=== PATIENT | female | born 1955 | race Caucasian/White ===

== ENCOUNTER 2020-03-02 20:22 | Inpatient (IN) ==
[2020-03-02] MEDS ORDERED: Ondansetron ODT 4 MG TAB.RAPDIS SL PRN (22:42)
[2020-03-02] MEDS ORDERED: Naloxone 0.4 MG/ML INJ IVP PRN (22:42)
[2020-03-03 01:03] LABS: Basophils # 0.1 K/mcL (0.0-0.2); Basophils % 0.4 %; Eosinophils % 0.1 %; Hematocrit 40.5 % (35.3-44.9); Hemoglobin 13.2 g/dL (11.5-15.4); Immature Granulocytes % 0.7 % (0-4); Lymphocytes # 2.3 K/mcL (0.6-4.6); Lymphocytes % 13.6 %; Mean Corpuscular HGB Conc 32.6 g/dL (31.6-35.5); Mean Corpuscular Hemoglobin 26.6 pg (28.0-33.3); Mean Corpuscular Volume 81.7 fL (83.0-100.0); Mean Platelet Volume 9.3 fL (9.4-12.4); Monocytes % 11.7 %; Neutrophils # 12.3 K/mcL (1.6-8.9); Platelet Count 338 K/mcL (140-400); Red Blood Count 4.96 M/mcL (3.82-4.97); Red Cell Distribution Width 14.6 % (11.5-14.5); Segmented Neutrophils % 73.5 %; White Blood Count 16.7 K/mcL (4.3-11.1)
[2020-03-03] MEDS ORDERED: D5% in Water 1,000 ML IVC PRN (01:13)
[2020-03-03] MEDS ORDERED: *HR* Dextrose 50 % in Water (Vial) 50 ML VIAL IVP PRN (01:13)
[2020-03-03] MEDS ORDERED: Dextrose Gel 15 GM/37.5 ML TUBE PO PRN ×2 (01:13)
[2020-03-03 01:23] LABS: % Iron Saturation 8 % (15-50); Alanine Aminotransferase 13 Units/L (7-52); Albumin/Globulin Ratio 1.6 (1.1-2.2); Alkaline Phosphatase 82 Units/L (34-104); Aspartate Amino Transferase 22 Units/L (13-39); BUN/Creatinine Ratio 13 (6-26); Bilirubin,Total 0.4 mg/dL (0.3-1.0); Blood Urea Nitrogen 9 mg/dL (8-23); Calcium 9.3 mg/dL (8.6-10.3); Carbon Dioxide 24 mEq/L (23-29); Chloride 95 mEq/L (98-107); Chol/HDL Ratio 2.8 (0-4.9); Cholesterol 160 mg/dL (< 200); Globulin 2.5 g/dL (2.4-3.5); Glucose 231 mg/dL (70-105); HDL Cholesterol 57 mg/dL (40-59); Iron 27 mcg/dL (50-170); LDL Cholesterol,Calculated 74 mg/dL (< 100); Magnesium 1.2 mg/dL (1.6-2.6); Osmolality,Calculated 282 (280-300); Phosphorous 2.1 mg/dL (2.7-4.5); Potassium 3.2 mEq/L (3.5-5.1); Sodium 133 mEq/L (136-145); Total Protein 6.5 g/dL (6.4-8.9); Transferrin 244 mg/dL (203-362); Triglycerides 144 mg/dL (< 150); eGFR For African Americans > 60 (> 60); eGFR For Non-African Americans > 60 (> 60)
[2020-03-03 01:34] LABS: Thyroid Stimulating Hormone 1.376 mcIU/mL (0.340-5.600)
[2020-03-03 01:40] LABS: Ferritin 76 ng/mL (10-120)
[2020-03-03] MEDS ORDERED: *HR* Heparin 5,000 UNIT/ML VIAL IVP PRN ×2 (02:33)
[2020-03-03] MEDS ORDERED: Perflutren Lipid Microsphere 1.3 ML in 0.9 % Sodium Chloride 8.7 ML IVP PRN (02:33)
[2020-03-03] MEDS ORDERED: *HR* Heparin 5,000 UNIT/ML VIAL IVP ONE (02:33)
[2020-03-03 03:04] LABS: Estimated Average Glucose 214 mg/dl; Hemoglobin A1C 9.1 %
[2020-03-03] MEDS: Heparin 25,000UNIT/250ML 1/2NS 25,000 UNIT/250 ML IV.SOLN IVC SCH (03:22)
[2020-03-03] MEDS: Insulin LISPRO 300 UNITS/3 ML VIAL SUBQ SCH ×5 (03:23→20:02)
[2020-03-03] MEDS: cefTRIAXone 1,000 MG in 0.9 % Sodium Chloride Mini Bag 100 ML IVPB SCH (09:42)
[2020-03-03] MEDS: carvediloL 6.25 MG TABLET PO SCH ×2 (10:43→16:07)
[2020-03-03] MEDS ORDERED: tiZANidine 4 MG TABLET PO PRN (12:51)
[2020-03-03] MEDS ORDERED: SUMAtriptan succinate 50 MG TABLET PO PRN (12:51)
[2020-03-03] MEDS: Aspirin 81 MG TAB.CHEW PO SCH (13:15)
[2020-03-03 22:11] LABS: Bacteria,Urine Few per hpf (None-Few); Bilirubin,Urine Negative (Negative); Blood,Urine Trace (Negative); Clarity,Urine Clear (Clear); Color,Urine Light-Yellow (Yellow); Glucose,Urine (UA) 100 mg/dL (Normal); Ketones,Urine 10 mg/dL (Negative); Leukocyte Esterase,Urine Small (Negative); Nitrite,Urine Negative (Negative); Protein,Urine Negative (Neg-Trace); RBC,Urine 0-3 per hpf (0-3); Specific Gravity,Urine 1.011 (1.010-1.025); Squamous Epithelial Cell,Urine Few per hpf (None-Few); Urobilinogen,Urine Normal (Normal); WBC,Urine 0-3 per hpf (0-3)
[2020-03-04] MEDS: traZODone 50 MG TABLET PO SCH ×2 (01:23→22:21)
[2020-03-04 03:09] LABS: Basophils # 0.1 K/mcL (0.0-0.2); Basophils % 0.5 %; Eosinophils # 0.1 K/mcL (0.0-0.6); Eosinophils % 0.6 %; Hematocrit 44.2 % (35.3-44.9); Hemoglobin 14.3 g/dL (11.5-15.4); Immature Granulocytes % 0.5 % (0-4); Lymphocytes # 2.7 K/mcL (0.6-4.6); Lymphocytes % 19.7 %; Mean Corpuscular HGB Conc 32.4 g/dL (31.6-35.5); Mean Corpuscular Hemoglobin 26.5 pg (28.0-33.3); Mean Platelet Volume 9.2 fL (9.4-12.4); Monocytes # 1.4 K/mcL (0.0-1.3); Monocytes % 9.8 %; Neutrophils # 9.5 K/mcL (1.6-8.9); Platelet Count 355 K/mcL (140-400); Red Blood Count 5.39 M/mcL (3.82-4.97); Red Cell Distribution Width 14.4 % (11.5-14.5); Segmented Neutrophils % 68.9 %; White Blood Count 13.8 K/mcL (4.3-11.1)
[2020-03-04] MEDS: Heparin 25,000UNIT/250ML 1/2NS 25,000 UNIT/250 ML IV.SOLN IVC SCH (03:16)
[2020-03-04 03:28] LABS: BUN/Creatinine Ratio 15 (6-26); Blood Urea Nitrogen 7 mg/dL (8-23); Calcium 9.3 mg/dL (8.6-10.3); Carbon Dioxide 26 mEq/L (23-29); Chloride 88 mEq/L (98-107); Glucose 243 mg/dL (70-105); Osmolality,Calculated 274 (280-300); Potassium 3.4 mEq/L (3.5-5.1); Sodium 129 mEq/L (136-145); eGFR For African Americans > 60 (> 60); eGFR For Non-African Americans > 60 (> 60)
[2020-03-04] MEDS: Insulin LISPRO 300 UNITS/3 ML VIAL SUBQ SCH ×4 (07:49→23:19)
[2020-03-04] MEDS: Aspirin 81 MG TAB.CHEW PO SCH (07:50)
[2020-03-04] MEDS: carvediloL 6.25 MG TABLET PO SCH ×2 (07:50→16:41)
[2020-03-04] MEDS: Loratadine 10 MG TABLET PO SCH (07:50)
[2020-03-04] MEDS: Folic Acid 1 MG TABLET PO SCH (07:50)
[2020-03-04] MEDS: Magnesium Oxide 400 MG TABLET PO SCH (07:50)
[2020-03-04] MEDS: Cholecalciferol (D-3) 1,000 UNIT (25MCG) TABLET PO SCH (07:51)
[2020-03-04] MEDS: cefTRIAXone 1,000 MG in 0.9 % Sodium Chloride Mini Bag 100 ML IVPB SCH (07:51)
[2020-03-04] MEDS ORDERED: Furosemide 20 MG TABLET PO SCH (09:00)
[2020-03-04] MEDS: amLODIPine 5 MG TABLET PO SCH (13:18)
[2020-03-04] MEDS: Acetaminophen 325 MG TABLET PO PRN (22:21)
[2020-03-05 00:43] LABS: Basophils # 0.1 K/mcL (0.0-0.2); Basophils % 0.5 %; Eosinophils # 0.2 K/mcL (0.0-0.6); Eosinophils % 1.2 %; Hematocrit 46.2 % (35.3-44.9); Hemoglobin 15.2 g/dL (11.5-15.4); Immature Granulocytes % 0.8 % (0-4); Lymphocytes % 19.9 %; Mean Corpuscular HGB Conc 32.9 g/dL (31.6-35.5); Mean Corpuscular Hemoglobin 26.2 pg (28.0-33.3); Mean Corpuscular Volume 79.7 fL (83.0-100.0); Monocytes # 1.8 K/mcL (0.0-1.3); Monocytes % 11.6 %; Neutrophils # 10.1 K/mcL (1.6-8.9); Platelet Count 393 K/mcL (140-400); Red Cell Distribution Width 14.2 % (11.5-14.5); White Blood Count 15.3 K/mcL (4.3-11.1)
[2020-03-05 01:49] LABS: BUN/Creatinine Ratio 16 (6-26); Blood Urea Nitrogen 9 mg/dL (8-23); Calcium 9.8 mg/dL (8.6-10.3); Carbon Dioxide 28 mEq/L (23-29); Chloride 85 mEq/L (98-107); Glucose 255 mg/dL (70-105); Osmolality,Calculated 265 (280-300); Sodium 124 mEq/L (136-145); eGFR For African Americans > 60 (> 60); eGFR For Non-African Americans > 60 (> 60)
[2020-03-05] MEDS ORDERED: Melatonin 3 MG TABLET PO PRN (04:43)
[2020-03-05] MEDS ORDERED: 0.9 % Sodium Chloride 1,000 ML IVC SCH (04:45)
[2020-03-05] MEDS ORDERED: Potassium Chloride 40 MEQ, Lidocaine 1% 2 ML in 0.9 % Sodium Chloride 500 ML IVPB ONE (04:58)
[2020-03-05] MEDS: Heparin 25,000UNIT/250ML 1/2NS 25,000 UNIT/250 ML IV.SOLN IVC SCH (05:09)
[2020-03-05] MEDS: Cholecalciferol (D-3) 1,000 UNIT (25MCG) TABLET PO SCH (07:45)
[2020-03-05] MEDS: carvediloL 6.25 MG TABLET PO SCH ×2 (07:46→16:58)
[2020-03-05] MEDS: Furosemide 20 MG TABLET PO SCH (07:46)
[2020-03-05] MEDS: Loratadine 10 MG TABLET PO SCH (07:46)
[2020-03-05] MEDS: amLODIPine 5 MG TABLET PO SCH (07:46)
[2020-03-05] MEDS: Folic Acid 1 MG TABLET PO SCH (07:47)
[2020-03-05] MEDS: Magnesium Oxide 400 MG TABLET PO SCH (07:47)
[2020-03-05] MEDS: Aspirin 81 MG TAB.CHEW PO SCH (07:47)
[2020-03-05] MEDS: cefTRIAXone 1,000 MG in 0.9 % Sodium Chloride Mini Bag 100 ML IVPB SCH (07:47)
[2020-03-05] MEDS: Insulin LISPRO 300 UNITS/3 ML VIAL SUBQ SCH ×5 (07:48→20:37)
[2020-03-05] MEDS: traZODone 50 MG TABLET PO SCH (20:23)
[2020-03-05] MEDS: *HR* Heparin 5,000 UNIT/ML VIAL SQ SCH (20:40)
[2020-03-06] MEDS: Acetaminophen 325 MG TABLET PO PRN (05:31)
[2020-03-06] MEDS: *HR* Heparin 5,000 UNIT/ML VIAL SQ SCH (05:32)
[2020-03-06 08:02] LABS: Basophils # 0.1 K/mcL (0.0-0.2); Eosinophils # 0.2 K/mcL (0.0-0.6); Eosinophils % 1.3 %; Hematocrit 50.1 % (35.3-44.9); Hemoglobin 15.3 g/dL (11.5-15.4); Lymphocytes # 2.9 K/mcL (0.6-4.6); Lymphocytes % 21.4 %; Mean Corpuscular HGB Conc 30.5 g/dL (31.6-35.5); Mean Corpuscular Hemoglobin 25.9 pg (28.0-33.3); Mean Corpuscular Volume 84.9 fL (83.0-100.0); Mean Platelet Volume 10.1 fL (9.4-12.4); Monocytes # 1.7 K/mcL (0.0-1.3); Monocytes % 12.5 %; Neutrophils # 8.5 K/mcL (1.6-8.9); Platelet Count 331 K/mcL (140-400); Red Cell Distribution Width 14.6 % (11.5-14.5); Segmented Neutrophils % 62.8 %; White Blood Count 13.5 K/mcL (4.3-11.1)
[2020-03-06 08:52] LABS: BUN/Creatinine Ratio 20 (6-26); Blood Urea Nitrogen 13 mg/dL (8-23); Calcium 9.5 mg/dL (8.6-10.3); Carbon Dioxide 19 mEq/L (23-29); Chloride 83 mEq/L (98-107); Glucose 294 mg/dL (70-105); Osmolality,Calculated 263 (280-300); Potassium 3.8 mEq/L (3.5-5.1); Sodium 121 mEq/L (136-145); eGFR For African Americans > 60 (> 60); eGFR For Non-African Americans > 60 (> 60)
[2020-03-06] MEDS: Insulin LISPRO 300 UNITS/3 ML VIAL SUBQ SCH (09:02)
[2020-03-06] MEDS: Cholecalciferol (D-3) 1,000 UNIT (25MCG) TABLET PO SCH (09:03)
[2020-03-06] MEDS: Aspirin 81 MG TAB.CHEW PO SCH (09:03)
[2020-03-06] MEDS: Magnesium Oxide 400 MG TABLET PO SCH (09:03)
[2020-03-06] MEDS: Furosemide 20 MG TABLET PO SCH (09:03)
[2020-03-06] MEDS: amLODIPine 5 MG TABLET PO SCH (09:03)
[2020-03-06] MEDS: Loratadine 10 MG TABLET PO SCH (09:03)
[2020-03-06] MEDS: carvediloL 6.25 MG TABLET PO SCH (09:03)
[2020-03-06] MEDS: cefTRIAXone 1,000 MG in 0.9 % Sodium Chloride Mini Bag 100 ML IVPB SCH (09:04)
[2020-03-06] MEDS: Folic Acid 1 MG TABLET PO SCH (09:04)
[2020-03-06] MEDS ORDERED: Insulin LISPRO 300 UNITS/3 ML VIAL SUBQ SCH ×2 (10:12)
[2020-03-06] MEDS ORDERED: Aspirin 81 MG TAB.CHEW PO SCH ×2 (13:30)
[2020-03-06] MEDS ORDERED: Alteplase (Activase) 9 MG in Syringe LUER-LOK 1 EACH IVPB ONE (14:15)
[2020-03-06 14:19] LABS: Prothrombin Time 12.1 Seconds (9.4-12.1)
[2020-03-06 14:38] LABS: BUN/Creatinine Ratio 19 (6-26); Blood Urea Nitrogen 13 mg/dL (8-23); Carbon Dioxide 25 mEq/L (23-29); Chloride 83 mEq/L (98-107); Glucose 220 mg/dL (70-105); Osmolality,Calculated 265 (280-300); Potassium 3.2 mEq/L (3.5-5.1); Sodium 124 mEq/L (136-145); eGFR For African Americans > 60 (> 60); eGFR For Non-African Americans > 60 (> 60)
[2020-03-06 14:40] VITALS: BP 129/99
[2020-03-06 15:01] LABS: Basophils # 0.1 K/mcL (0.0-0.2); Basophils % 0.7 %; Eosinophils # 0.2 K/mcL (0.0-0.6); Eosinophils % 1.3 %; Hematocrit 47.2 % (35.3-44.9); Hemoglobin 15.8 g/dL (11.5-15.4); Immature Granulocytes % 1.2 % (0-4); Lymphocytes # 2.9 K/mcL (0.6-4.6); Lymphocytes % 21.5 %; Mean Corpuscular HGB Conc 33.5 g/dL (31.6-35.5); Mean Corpuscular Hemoglobin 26.3 pg (28.0-33.3); Mean Corpuscular Volume 78.5 fL (83.0-100.0); Mean Platelet Volume 9.3 fL (9.4-12.4); Monocytes # 1.7 K/mcL (0.0-1.3); Monocytes % 12.7 %; Neutrophils # 8.5 K/mcL (1.6-8.9); Platelet Count 446 K/mcL (140-400); Red Blood Count 6.01 M/mcL (3.82-4.97); Red Cell Distribution Width 14.3 % (11.5-14.5); Segmented Neutrophils % 62.6 %; White Blood Count 13.6 K/mcL (4.3-11.1)
[2020-03-06 15:09] LABS: Troponin I 0.04 ng/mL (< 0.04)
== END 2020-03-06 14:59 | disposition short-term general hospital (02) | DRG 720 ==
LOC: 2ANU → SUATTDRO 22:17
PROVIDERS: ADMIT Internal Medicine; ATTEND Family Medicine